=== PATIENT | male | born 1985 | race Caucasian/White ===

== ENCOUNTER 2023-10-08 17:58 | Inpatient (IN) | payer OTHER ==
[~2023-10-08] VITALS: Ht 182.9 cm; Wt 73.9 kg
[2023-10-08 17:45] VITALS: BP 104/81; PULSE 110; TEMP 97.6
--- NOTE | 2023-10-08 17:45 | NUR ---
PATIENT ARRIVED TO UNIT VIA EMS COT ACCOMPANIED BY TWO HIDE AND SKIN CLASSER AND GUARD. PATIENT ARRIVED WITH EYES CLOSED AND BODY CUFF + HANDCUFFS APPLIED. NO VISIBLE ACUTE DISTRESS NOTED.
[2023-10-08] MEDS ORDERED: Acetaminophen 325 MG TAB PO PRN (18:30)
[2023-10-08] MEDS ORDERED: D5W 1,000 ML IV SCH (18:30)
--- NOTE | 2023-10-08 18:49 | NUR ---
PER PATIENT HE HAS NOT BEEN EATING BECAUSE "I AM TRYING TO SAVE THE WORLD."HE REPORTS USING METH, COCAINE AND MARAJUANA 6 MONTHS AGO. MUCUS MEMBRANES DRY AND CRACKED. MOUTH APPEARS TO HAVE BLOOD IN IT. GRIP BOSS STATES THAT HE HAS BEEN IN THE [facility] SINCE AUGUST 12, 2023 FOR AGGRAVATED BATTERY. A FEW WEEKS AGO, HE STOPPED EATING AND DRINKING BUT THEY WERE ABLE TO CONVINCE HIM TO RESUME EATING/DRINKING. THIS RN WAS TOLD THAT TERE STOPPED EATING AND DRINKING AGAIN 3 WEEKS AGO. PATIENT HAD COURT TODAY 10/08/[address] ORDERED ON AN INVOLUNTARY PSYCH HOLD. PATIENT HAS A BED AT [facility] WHEN MEDICALLY CLEARED. [facility] IS TO BE NOTIFIED ONCE MEDICALLY CLEARED. WHEN RESIDENTIAL GUARDS SWITCHED, SANDBLASTING SUPERVISOR WAS ASKED BY PATIENT "WHAT IS YOUR NAME? WHAT IS YOUR NAME?" GUARD STATED , "CHASE". PATIENT THEN SAID "COME CLOSER". GUARD STEPPED CLOSER TO BED AND PATIENT GRABBED PLASTIC CROSS NECKLACE AND TRIED TO JAB GUARD WITH IT. PATIENT QUICKLY SETTLED DOWN. PATIENT REMAINS RESTRAINED WITH BELLY BELT AND HANDCUFFS AT THIS TIME. BED IS IN LOW POSITION AND CALL LIGHT WITHIN REACH. SECURITY AWARE OF PATIENTS ARRIVAL TO UNIT.
--- NOTE | 2023-10-08 19:15 | NUR ---
PATIENT IN BED, ALERT AND CALM. PATIENT IN HANDCUFFS WITH BELLY BELT CONNECTED TO CUFFS. IV'S IN EACH AC. OFFICER AT BEDSIDE.
[2023-10-08 20:00] VITALS: BP 106/83; PULSE 88; TEMP 98.5
[2023-10-08 20:19] LABS: CALCIUM 10.6 mg/dL (8.4-10.2); CREATININE, serum 1.86 mg/dL (0.72-1.25); POTASSIUM 3.7 mEq/L (3.5-4.5)
[2023-10-08 22:40] LABS: COLLECTION METHOD CLEAN CATCH
[2023-10-08 22:52] LABS: PH 5.5 (5.0-8.5); URINE APPEARANCE CLEAR (CLEAR/HAZY); URINE BLOOD NEGATIVE (NEGATIVE); URINE COLOR YELLOW (YELLOW); URINE GLUCOSE NEGATIVE (NEGATIVE); URINE KETONE TRACE (NEGATIVE); URINE NITRATE NEGATIVE (NEGATIVE); URINE PROTEIN(semi-quant) TRACE (NEGATIVE)
[2023-10-08 23:02] LABS: TRICYCLIC ANTIDEPRESS URINE NEGATIVE (NEGATIVE)
[2023-10-09] VITALS: BP 90/67; PULSE 91
[2023-10-09] MEDS ORDERED: Heparin 5,000 UNITS/ML 1 ML VIAL SQ SCH
[2023-10-09 01:52] LABS: CALCIUM 10.2 mg/dL (8.4-10.2); CREATININE, serum 1.8 mg/dL (0.72-1.25); POTASSIUM 3.8 mEq/L (3.5-4.5)
[2023-10-09 04:00] VITALS: BP 85/64; PULSE 89
[2023-10-09 06:21] LABS: BASO # 0.1 K/mm3 (0.0-0.2); BASO % 0.9 % (0.0-2.0); EOS # 0.1 K/mm3 (0.0-0.7); EOS % 1.9 % (0.0-4.0); GRAN # 3.2 K/mm3 (1.4-6.5); GRAN % 45.2 % (42.2-75.2); HEMOGLOBIN 17.5 g/dl (13.5-18.0); LYMPH # 2.9 K/mm3 (1.2-3.4); LYMPH % 41.9 % (20.0-51.0); MEAN CELL VOLUME 83 fl (80.0-100.0); MEAN CORPUSCULAR HEMOGLOBIN 27 pg (27-31); MEAN CORPUSCULAR HGB CONC 33 g/dl (33.0-37.0); MEAN PLATELET VOLUME 11.5 fl (7.4-10.4); MONO # 0.7 K/mm3 (0.1-0.6); PLATELET COUNT 225 K/mm3 (130-400); RED BLOOD COUNT 6.44 M/mm3 (4.20-5.60); REDCELL DISTRIBUTION WIDTH-CV 13.7 % (11.5-14.5)
[2023-10-09 06:25] LABS: HEMATOCRIT 53.2 % (42.0-52.0)
[2023-10-09 07:30] LABS: CALCIUM 9.9 mg/dL (8.4-10.2); CREATININE, serum 1.49 mg/dL (0.72-1.25); POTASSIUM 3.4 mEq/L (3.5-4.5)
[2023-10-09] MEDS ORDERED: Pantoprazole 40 MG in NS 10 ML IV SCH (09:00)
--- NOTE | 2023-10-09 09:32 | NUR ---
brush worker met with Officer Major whom expressed patient is in police custody and will [facility] to the [facility] at [facility] of discharge. SW notes Mehdi needs to be notified when medically cleared as patient will be going to [facility]. TACOS asked about patient's next of kin if staff needed to contact them in the event of an emergency, Officer Major stated there is a no contact order with patient's next of kin and in an emergency the police would have to contact his next of kin. Discharge plan: Return to [facility]
--- NOTE | 2023-10-09 09:40 | NUR ---
Initial visit; Patient thanked Senior Agricultural Assistant for looking in on him. A Field Examiner was with him. was pleased when Yogesh said he would like Senior Agricultural Assistant to keep him in her prayers and also to pray for the Salvation of everyone.
[2023-10-09 11:25] LABS: CREATININE, serum 1.57 mg/dL (0.72-1.25)
[2023-10-09 13:48] VITALS: BP 97/69; PULSE 81; TEMP 97.9
--- NOTE | 2023-10-09 14:19 | NUR ---
Pt arrived from ICU to medical floor by bed. Shift assessment completed. Pt is A&O x4. VSS. IVF infusing into LAC with no complications. Pt in police custody with bilateral wrist in handcuffs and police patrol officer at bedside with body camera on chest. Lung sounds clear to auscultation. INT to RAC patent with no swelling, redness, or drainage. Pt denies pain at this time rating 0/10. Allergies, home meds, and pharmacy reviewed with pt. Oriented pt to call light, bathroom, and room. Pt has no request at this time. Call light within reach. Report reached by TERESA Manuel from ICU.
[2023-10-09 14:47] LABS: CALCIUM 9.1 mg/dL (8.4-10.2); CREATININE, serum 1.46 mg/dL (0.72-1.25); POTASSIUM 3.9 mEq/L (3.5-4.5)
[2023-10-09] MEDS ORDERED: Potassium Bicarbonate/Citrate 20 MEQ Effervescent TAB PO ONE (15:00)
--- NOTE | 2023-10-09 15:01 | NUR ---
COMPLIANCE TESTER Mar administered two bags IV potassium before pt arrived to floor. Recheck BMP showed K+ level at 3.9, per protocol pt needs only 20 meq effer-k. Checked with pharmacy and charge nurse
[2023-10-09 17:48] VITALS: BP 104/68; PULSE 80; TEMP 97.8
[2023-10-09 20:32] LABS: CALCIUM 8.8 mg/dL (8.4-10.2); CREATININE, serum 1.32 mg/dL (0.72-1.25); POTASSIUM 3.5 mEq/L (3.5-4.5)
[2023-10-09 20:50] VITALS: BP 99/66; PULSE 70; TEMP 98.4
[2023-10-10 00:19] VITALS: BP 95/60; PULSE 70; TEMP 97.6
[2023-10-10 01:20] LABS: CALCIUM 8.6 mg/dL (8.4-10.2); CREATININE, serum 1.26 mg/dL (0.72-1.25); POTASSIUM 3.1 mEq/L (3.5-4.5)
[2023-10-10] MEDS ORDERED: Potassium Bicarbonate/Citrate 20 MEQ Effervescent TAB PO SCH (03:00)
[2023-10-10 03:26] VITALS: BP 100/65; PULSE 66; TEMP 97.4
--- NOTE | 2023-10-10 07:24 | NUR ---
Bedside report received from TERESA Villasenor. Pt is resting in bed awake with no complaints. hazard mitigation officer at bedside. Call light within reach.
[2023-10-10 07:44] LABS: MAGNESIUM 2.3 mg/dL (1.6-2.6); PHOSPHOROUS 2.4 mg/dL (2.3-4.7)
[2023-10-10 08:06] VITALS: BP 98/61; PULSE 80; TEMP 98.2
--- NOTE | 2023-10-10 08:13 | NUR ---
Pt awake in bed with no complaints. Shift assessment completed. Pt is A&O x4. Officer at bedside with body camera on. Pt handcuffed on bilateral wrist with no irriation to nares and CMS intact. Pt denies pain rating 0/10. Pt request to have shower. INT sites on RAC and LAC covered for shower and officer at bedside in bathroom at all times during shower. Pt has no other request at this time. Call light within reach.
--- NOTE | 2023-10-10 09:03 | NUR ---
Received telephone call from TERESA Carlson at [facility] for a update on pt stay at hospital. TERESA Carlson requesting medical documents to be faxed to facility. This nurse informed Ana BALDERRAMA and Debora MORALES of conversation with TERESA Carlson.
[2023-10-10 09:21] LABS: CALCIUM 8.5 mg/dL (8.4-10.2); CREATININE, serum 1.21 mg/dL (0.72-1.25); POTASSIUM 3.2 mEq/L (3.5-4.5)
--- NOTE | 2023-10-10 10:32 | NUR ---
TERESA Scales at [facility] called for an update regarding pt hospital stay. Update provided to TERESA Scales.
[2023-10-10 11:50] VITALS: BP 101/68; PULSE 77; TEMP 97.8
--- NOTE | 2023-10-10 15:52 | NUR ---
Per patients nurse that [facility] is requesting patient be released into their care to be taken back to assisted to await bed at [facility]. This nurse spoke with [facility] the patinet has been accepted and within the hour that patient could be transfered. They ([facility]) are awaiting Doc to [facility] for final acceptance. Explained to Officer in the room the call between [facility] and this nurse. Per request of officer; this nurse called [facility]. [facility] is wanting the patient to be released back into their custody and they will transport tonight after 6 due to staffing issues. I explained to [facility] that we would do a discharge to their custody but they will then need to be in contact with [facility] for Admission after his discharge. This nurse spoke with [facility] triage line and explained to then the request of [facility] . I explained this would not be a tranfer but a discharge to the [facility]. They stated that would be fine. I explained that I had requested [facility] to contact them to make final arrangements.
--- NOTE | 2023-10-10 16:16 | NUR ---
Nurse to nurse report given to TERESA Tamez as [facility] by phone. Discharge paperwork provided to officer Jose Miguel who is at bedside with pt from [facility]. INT to RAC and LAC discontinued with tip intact, pt tolerated well with no complaints. Pt is leaving facility with officer Jose Miguel in handcuffs and in police custody at this time.
--- NOTE | 2023-10-10 16:59 | NUR ---
Occupational Health Nurse faxed clinicals to [facility]. Patient is medically cleared and will discharge there today.
== END 2023-10-10 16:17 | DRG 682 ==
LOC: ICU 17:58 → MEDICAL 10-09 13:51
PROVIDERS: Nurse Practitioner Family; ADMIT Internal Medicine
DX: N17.9 Acute kidney failure, unspecified (principal); E43 Unspecified severe protein-calorie malnutrition; E87.0 Hyperosmolality and hypernatremia; Z68.1 Body mass index [BMI] 19.9 or less, adult; I95.9 Hypotension, unspecified; F31.9 Bipolar disorder, unspecified; E83.52 Hypercalcemia; E87.6 Hypokalemia; R53.81 Other malaise; E86.0 Dehydration; E86.1 Hypovolemia; E87.8 Other disorders of electrolyte and fluid balance, not elsewhere classified; Z90.89 Acquired absence of other organs; Z87.891 Personal history of nicotine dependence; Z91.013 Allergy to seafood
CPT/HCPCS: C9113; J1644; J3480; J7070